=== PATIENT | female | born 1995 ===

== ENCOUNTER 2024-11-08 09:34 | Emergency (ER) | payer OTHER ==
[~2024-11-08] VITALS: Ht 165.1 cm; Wt 63.7 kg
[2024-11-08 10:21] VITALS: BP 112/66; PULSE 66; RESP 16; TEMP 98; O2SAT 97
--- NOTE | 2024-11-08 10:27 | ED.PDOC ---
HPI Comments A 29 YEAR OLD FEMALE PRESENTS TO THE ED VIA EMS WITH COMPLAINT OF NOSE LACERATION X TODAY. PT STATES HER BLINDS FELL ON HER AT HOME. PT IS CURRENTLY 21WEEKS AND C/O PELVIC RAMPS AFTER INJURY. PATIENT DENIES FALL INJURY, FEVER, CHILLS, SHORTNESS OF BREATH, CHEST PAIN, ABDOMINAL PAIN, NAUSEA, VOMITING, HEADACHE, OR OTHER COMPLAINTS. NO OTHER SYMPTOMS OR MODIFYING FACTORS AT THIS TIME.PATIENT IS ALERT, ORIENTED X 4, AND HAS STEADY GAIT. 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 Family History Family History: Unknown Social History Smoker: Non-Smoker Alcohol: Denies ETOH Use Drugs: Denies Drug Use Lives In: Home Constitutional: denies: chills, diaphoresis, fatigue, fever, malaise, sweats, weakness, others EENTM: denies: blurred vision, double vision, ear bleeding, ear discharge, ear drainage, ear pain, ear ringing, eye pain, eye redness, hearing loss, mouth pain, mouth swelling, nasal discharge, nose bleeding, nose congestion, nose pain, photophobia, tearing, throat pain, throat swelling, voice changes, others Respiratory: denies: cough, hemoptysis, orthopnea, SOB at rest, shortness of breath, SOB with excertion, stridor, wheezing, others Cardiovascular: denies: chest pain, dizzy spells, diaphoresis, Dyspnea on exertion, edema, irregular heart beat, left arm pain, lightheadedness, palpitations, PND, syncope, others Gastrointestinal: denies: abdomen distended, abdominal pain, blood streaked bowels, constipated, diarrhea, dysphagia, difficulty swallowing, hematemesis, melena, nausea, poor appetite, poor fluid intake, rectal bleeding, rectal pain, vomiting, others Genitourinary: reports: ; denies: abnormal vagina bleeding, burning, dyspareunia, dysuria, flank pain, frequency, hematuria, incontinence, pain, vagina discharge, urgency, others Neurological: denies: dizziness, fainting, headache, left sided numbness, left sided weakness, numbness, paresthesia, pre-existing deficit, right sided numbness, right sided weakness, seizure, speech problems, tingling, tremors, weakness, others Musculoskeletal: denies: back pain, gout, joint pain, joint swelling, muscle pain, muscle stiffness, neck pain, others Integumetry: reports: laceration (LEFT SIDE OF NOSE); denies: bruises, change in color, change in hair/nails, dryness, lesions, lumps, rash, wounds, others Allergic/Immunocompromised: denies: Difficulty Healing, Frequent Infections, Hives, Itching, others Hematologic/Lymphatic: denies: anemia, blood clots, easy bleeding, easy bruising, swollen glands, others Endocrine: denies: excessive hunger, excessive sweating, excessive thirst, excessive urination, flushing, intolerance to cold, intolerance to heat, unexplained weight gain, unexplained weight loss, others Psychiatric: denies: anxiety, bipolar disorder, depression, hopeless, panic disorder, schizophrenia, sleepless, suicidal, others All Other Systems: Deferred Physical Exam General Appearance: No Apparent Distress, Normal, Other (ANXIOUS ) HEENT: Normal ENT Inspection, PERRL/EOMI, Pharynx Normal, TMs Normal, Other (LACERATION ON RIGHT SIDE NOSE, NO BONY TENDERNESS, SWELLING AND DEFORMITY. ) Neck: Full Range of Motion, Non-Tender, Normal, Normal Inspection Respiratory: Chest Non-Tender, Lungs Clear, No Accessory Muscle Use, No Respiratory Distress, Normal Breath Sounds Cardiovascular: No Edema, No JVD, No Murmur, No Gallop, Normal Peripheral Pulses, Regular Rate/Rhythm Breast Exam: Deferred Gastrointestinal: No Organomegaly, Non Tender, No Pulsatile Mass, Normal Bowel Sounds, Soft Genitalia: Deferred Pelvic: Deferred Rectal: Deferred Extremities: No calf tenderness, Normal capillary refill, Normal inspection, Normal range of motion, Non-tender, No pedal edema Musculoskeletal : Apperance: Normal Neurologic: Alert, aquatics instructor II-XII nml as Tested, No Motor Deficits, Normal Affect, Normal Mood, No Sensory Deficits Cerebellar Function: Normal Reflexes: Normal Skin: Dry, Lacerations (3CM IRREGULAR LACERATION ON RIGHT SIDE NOSE, NO BLEEDING AND SWELLING, NO FB. ), Normal Color, Warm Peripheral Pulses: 2+ carotid (R), 2+ carotid (L) Lymphatic: No Adenopathy Was a procedure done? Was a procedure done?: Yes Sedation Sedation?: No Laceration Repair : Location RIGHT SIDE OF NOSE Length 3CM Anesthetic: Lidocaine Laceration Repair Prep: Saline Laceration Repair Wound Comple: epidermis/dermis repair Laceration Repair: Number of sutures (8), SQ, Size (5-0), Simple, Gauze Informed consent obtained: No Risks, benefits, and alternati: Yes Images 1 - Differential diagnosis Generic Laceration: Laceration X-Ray, Labs, Meds, VS Vital Signs Date Time Temp Pulse Resp B/P (MAP) Pulse Ox O2 Delivery O2 Flow Rate FiO2 11/08/24 10:21 66 16 97 Room Air 11/08/24 10:21 98.0 66 16 112/66 (81) 97 98.0 11/08/24 09:39 98.1 64 16 111/65 (80) 99 X-Ray, Labs, Meds, VS Comment COURSE: EXTERNAL MEDICAL RECORDS REVIEWED: [NONE] INDEPENDENT HISTORIANS: [NONE] SOCIAL DETERMINANTS OF HEALTH: [NONE] LABS ORDERED: NONE REVIEWED AND INTERPRETED RESULTS: NONE IMAGING ORDERED: NONE TREATMENTS ORDERED: PROCEDURES PERFORMED: NONE CRITICAL CARE TIME: NONE SPOKE WITH CHARGE NURSE LUGO IN L&D DEPT. PT WILL BE SENT TO L&D FOR MONITORING PER PT REQUEST SHE FEELS PELVIC CRAMPING AFTER THE INCIDENT. I HAVE DISCUSSED THE PATIENT WITH THE ATTENDING PHYSICIAN DR. STONE AND HE AGREES WITH THE PATIENT'S PLAN OF CARE AND DISPOSITION. BASED ON HISTORY OF PRESENT ILLNESS, AND PHYSICAL EXAM, PATIENT WILL BE DISCHARGED HOME. DISCUSSED PLAN FOR DISCHARGE HOME WITH RX. MEDICATION WARNINGS GIVEN. SHARED DECISION MAKING: DISCUSSED WITH PATIENT THAT THEIR WORKUP WAS NORMAL. PATIENT INSTRUCTED TO FOLLOW UP WITH PRIMARY CARE PROVIDER IN 1-2 DAYS FOR RE- EVALUATION OF SYMPTOMS. PATIENT VERBALIZES UNDERSTANDING TO RETURN TO ED FOR NEW OR WORSENING SYMPTOMS OR IF FOLLOW UP WITH PCP CANNOT BE OBTAINED. PATIENT FEELS COMFORTABLE GOING HOME AT THIS TIME. ALL QUESTIONS ADDRESSED AT TIME OF DISCHARGE. Time of 1ST Reevaluation: 11:02 Reevaluation 1ST: Improved Patient Education/Counseling: Diagnosis, Treatment Family Education/Counseling: Diagnosis, Treatment, No Family Present Comments PT WAS SENT TO L & D. Medical Screening: No EMC Exist At This Time Departure 1 Departure Time of Disposition: 11:02 Impression: Primary Impression: Laceration of nose Qualified Codes: S01.21XA - Laceration without foreign body of nose, initial encounter Disposition: 30 STILL A PATIENT Condition: Stable Additional Instructions: FOLLOW-UP WITH PCP IN 1 TO 2 DAYS. TAKE MEDICATIONS PRESCRIBED. RETURN TO ED FOR ANY NEW OR WORSENING SYMPTOMS. Discharged With: Self, Spouse Critical Care Note Critical Care Time?: No Stability Stability form required: No Heart Score Heart Score: Heart Score Response (Comments) Value History N/A 0 EKG N/A 0 Age N/A 0 Risk Factors N/A 0 Troponin N/A 0 Total 0 I personally scribed for BERTIN DOUGLAS ([email or web address]) on 11/08/24 at 10:27. Electronically submitted by Sindy Issa ([email or web address]). I personally scribed for BERTIN DOUGLAS ([email or web address]) on 11/08/24 at 10:39. Electronically submitted by Sindy Issa ([email or web address]). I personally scribed for BERTIN DOUGLAS ([email or web address]) on 11/08/24 at 10:50. Electronically submitted by Sindy Issa ([email or web address]). I personally scribed for BERTIN DOUGLAS ([email or web address]) on 11/08/24 at 10:56. Electronically submitted by Sindy Issa ([email or web address]). BERTIN DOUGLAS Nov 08, 2024 10:27
[2024-11-08] MEDS: LIDOCAINE 1% HCL (LOCAL ANESTH.) INJ 20ML MDV IJ ONE (10:39)
[2024-11-08] MEDS ORDERED: PREN-96 PO (11:42)
== END 2024-11-08 11:05 | disposition home or self-care (01) ==
LOC: EDBD 09:34 → ER 09:34
DX: O71.89 Other specified obstetric trauma (principal); Z3A.12 12 weeks gestation of pregnancy
CPT/HCPCS: 12013; 99283; J2003

== ENCOUNTER 2024-11-08 11:15 | Observation (INO) | payer OTHER ==
[2024-11-08] MEDS ORDERED: PREN-96 PO (11:42)
--- NOTE | 2024-11-08 14:18 | DVH ---
OB ULTRASOUND <14 WEEKS: HISTORY: Decresed movement TECHNIQUE: Multiple real-time grayscale sonographic images of the pelvis with duplex Doppler color f low, spectral and M-mode analysis. TRANSDUCERS: Transabdominal COMPARISON: None FINDINGS: IUP single fetus with a breech presentation. heart rate of 138 beats per minute. Suboptimal visualization of the cervix. Maximum vertical pocket is 4.4 cm. Placenta is anterior without evidence of previa or abruption. Cristina-gestational space: No evidence of perigestational hemorrhage. IMPRESSION: IUP single live fetus with a heart rate of 138 beats per minute.
--- NOTE | 2024-11-09 11:22 | DVHDS2 ---
Discharge Summary Date of Admission Nov 08, 2024 at 11:15 Date of Discharge: Nov 08, 2024 Admitting Diagnosis out patient here for decreased movement Wounds: n/a Labs/Diagnostic Data: reassuring fht and fluid Brief Hx & Hospital Course: here for brief evaluation and reassurance Consults/Reason for consult n/a Operations or Procedures n/a Condition at Discharge: Good Final Diagnosis/Problems List reasuring , intra uterine Discharge Disposition: Home SNF Discharge Will this Physician continue t: No Discharge Instruct/Medications Diet: Regular Activity: No Restrictions, As Tolerated Discharge Statement: "Patient was advised to return to the ER or call 911 if any headaches, dizziness, shortness of breath, chest pain, abdominal pain, bleeding, fevers, or worsening of medical condition. Patient was counseled about treatment plan, medications, possible side effects, patientverbalized understanding. All questions were answered to the best of my ability. This discharge took greater then 30 minutes in planning, reviewing documentation, counseling the patient, and discussing with other team members." ASSESSMENT ASSESSMENT Assessment Visit Coding OBGYN Date of Service: Nov 08, 2024 Billing Provider: SIM KAM DO RETICLE PRINTER Common Visit Codes: 14312-[id number] INP/OBS CARE(LOW), 40497-[id number] INP/OBS CARE(HIGH), 68860-QWY/OBS SAME DATE (MOD) RETICLE PRINTER Procedure Codes: 36476-74- NON-STRESS TEST SIM KAM DO Nov 09, 2024 11:22
== END 2024-11-08 12:32 | disposition home or self-care (01) ==
LOC: LDRP 11:15
PROVIDERS: ADMIT Obstetrics & Gynecology; ATTEND Obstetrics & Gynecology
DX: O36.8120 Decreased fetal movements, second trimester, not applicable or unspecified (principal); Z98.890 Other specified postprocedural states; Z79.899 Other long term (current) drug therapy; Z3A.20 20 weeks gestation of pregnancy
CPT/HCPCS: 59025; 76815; 81002; G0378